=== PATIENT | female | born 1980 | race Hispanic/Latino ===

== ENCOUNTER 2017-08-01 10:32 | Emergency (ER) | payer BC ==
[2017-08-01 10:42] VITALS: BMI 22.8
[2017-08-01 10:45] VITALS: RESP 18
[2017-08-01] MEDS ORDERED: Lidocaine 1% w Epi 1:100,000 Inj INJ STA (11:44)
[2017-08-01] MEDS ORDERED: Oxycodone/Acetaminophen 5/325 mg Tab PO STA (12:32)
[2017-08-01] MEDS ORDERED: Tmp-Smz 800 mg-160 mg DS Tab PO STA (12:32)
--- NOTE | 2017-08-01 12:35 | C.PDOC ---
History Of Present Illness 36-year-old female, presents to the emergency department with complaints of painful lump on right wrist that started six days ago. States it started as small pimple which got bigger after she popped it. Patient went to an urgent care and was started on Augmentin, advised to complete course. States she returned for follow up and sx did not improve, resulting in her being sent to ED for further evaluation. Of note, patient is currently breast feeding Time Seen by Provider: 08/01/17 11:14 Chief Complaint (Nursing): Abnormal Skin Integrity History Per: Patient History/Exam Limitations: no limitations Onset/Duration Of Symptoms: Days Current Symptoms Are (Timing): Still Present Past Medical History Reviewed: Historical Data, Nursing Documentation, Vital Signs Vital Signs: Last Vital Signs Temp 97.7 F 08/01/17 13:00 Pulse 56 L 08/01/17 13:00 Resp 18 08/01/17 13:00 BP 116/84 08/01/17 13:00 Pulse Ox 98 08/01/17 16:33 Family History: States: No Known Family Hx - Social History Hx Alcohol Use: No Hx Substance Use: No - Immunization History Hx Tetanus Toxoid Vaccination: Yes Hx Influenza Vaccination: No Hx Pneumococcal Vaccination: No Review Of Systems Constitutional: Negative for: Fever, Chills Respiratory: Negative for: Shortness of Breath Gastrointestinal: Negative for: Nausea, Vomiting Musculoskeletal: Positive for: Hand Pain. Negative for: Neck Pain Skin: Negative for: Rash Neurological: Negative for: Weakness Physical Exam - Physical Exam Appears: Non-toxic, No Acute Distress Skin: Warm, Dry Nose: Normal Oral Mucosa: Moist Lips: Normal Appearing Neck: Normal ROM Extremity: Normal ROM, No Deformity, Other (radial aspect right wrist: skin abscess 2.5 cm. with black center and fluctuance. No cellulitis or streaking.) Pulses: Left Radial: Normal, Right Radial: Normal Neurological/Psych: Oriented x3, Normal Speech ED Course And Treatment O2 Sat by Pulse Oximetry: 98 Medical Decision Making Medical Decision Making: Performed by the emergency provider Indication:Abscess Location: radial aspect right wrist: Preparation:The area was prepped and draped in the usual sterile fashion and was cleansed w/ Saline. Local infiltration of Lidocaine 2% was used for anesthesia. Procedure:The most fluctuant portion of the abscess was incised with a #11 scalpel. Approximately 3cc of purulent material was obtained. Area was packed with 1/4 inch sterile packing. A dressing was applied by me. Post-Procedure: On exam: feels better, no active bleeding, no neuro-vascular deficit. The patient tolerated the procedure well, and there were no complications. Culture obtained: YES Reassess: Patient treated with Percocet for pain, given one dose of Bactrim and Keflex in ED and will be discharged with Rx to complete course of antibiotics. Patient instructed to follow up with PMD or ED for wound evaluation in three days, asked to return immediately for any new or worsening symptoms, such as fevers, chills, vomiting. Patient agreeable with plan. All questions answered. Disposition - Disposition Referrals: Aquilino Martel MD [Staff Provider] - Disposition: HOME/ ROUTINE Disposition Time: 12:34 Condition: IMPROVED Additional Instructions: Follow up with general surgery within 1-2 days. Return to ED if feel worse. Return to ED in 2 days for wound check and dressing change. Prescriptions: Sulfamethoxazole/Trimethoprim [Bactrim DS 800 mg-160 mg] 1 tab PO BID #14 tab Cephalexin [cephalexin] 500 mg PO Q6 #28 cap oxyCODONE/Acetaminophen [Percocet 5/325 mg Tab] 1 tab PO QID PRN #20 tab PRN Reason: Pain Instructions: Abscess Incision and Drainage (DC) Forms: [employer] (Yi) - Clinical Impression Clinical Impression: Abscess of wrist - Scribe Statement The provider has reviewed the documentation as recorded by the Scribe (Drea Daley) All medical record entries made by the Scribe were at my direction and personally dictated by me. I have reviewed the chart and agree that the record accurately reflects my personal performance of the history, physical exam, medical decision making, and the department course for this patient. I have also personally directed, reviewed, and agree with the discharge instructions and disposition.
[2017-08-01] MEDS ORDERED: Tmp-Smz 800 mg-160 mg DS Tab ONE (12:50)
[2017-08-01] MEDS ORDERED: Oxycodone/Acetaminophen 5/325 mg Tab ONE (12:51)
[2017-08-01 13:06] VITALS: BP 116/84; PULSE 56; TEMP 97.7
[2017-08-01 15:37] VITALS: O2SAT 98
== END 2017-08-01 13:45 | disposition home or self-care (01) ==
LOC: C.ER 10:32
DX: L02.413 Cutaneous abscess of right upper limb (principal)

== ENCOUNTER 2017-08-03 09:32 | Emergency (ER) | payer BC ==
[2017-08-03 09:34] VITALS: BMI 22.8
[2017-08-03 09:40] VITALS: BP 105/54; PULSE 61; RESP 18; TEMP 97.6; O2SAT 97
--- NOTE | 2017-08-03 10:55 | C.PDOC ---
History Of Present Illness 36 yr old female presents to the ER for wound check s/p I&D to the right wrist 2 days ago. Patient was instructed to return today for a wound check. Patient states she is taking antibiotics at home. Denies fever, chills, weakness or numbness in the hand. Time Seen by Provider: 08/03/17 10:41 Chief Complaint (Nursing): Wound Check History Per: Patient History/Exam Limitations: no limitations Onset/Duration Of Symptoms: Days Ago (2 days ago) Past Medical History Reviewed: Historical Data, Nursing Documentation, Vital Signs Vital Signs: Last Vital Signs Temp 97.6 F 08/03/17 09:37 Pulse 61 08/03/17 09:37 Resp 18 08/03/17 09:37 BP 105/54 L 08/03/17 09:37 Pulse Ox 97 08/03/17 10:55 Family History: States: No Known Family Hx - Social History Hx Alcohol Use: No Hx Substance Use: No - Immunization History Hx Tetanus Toxoid Vaccination: Yes Hx Influenza Vaccination: No Hx Pneumococcal Vaccination: No Review Of Systems Except As Marked, All Systems Reviewed And Found Negative. Constitutional: Negative for: Fever, Chills Skin: Positive for: Other (wound check to the right wrist s/p I&D) Neurological: Negative for: Weakness, Numbness Physical Exam - Physical Exam Appears: Non-toxic, No Acute Distress Skin: Warm, Dry Oral Mucosa: Moist Respiratory: Normal Breath Sounds, No Rales, No Rhonchi, No Stridor, No Wheezing Extremity: Normal ROM, Capillary Refill (<2 secs), No Swelling, Other (+ right wrist, packing in place to the distal dorsal right wrist abscess, slight surrounding erythema) Neurological/Psych: Oriented x3, Normal Speech, Normal Motor ED Course And Treatment O2 Sat by Pulse Oximetry: 97 (RA) Pulse Ox Interpretation: Normal Medical Decision Making Medical Decision Making: IMPRESSION: Wound check NOTE: * Patient states she would like to leave the packing in place for 2 more days and have it changed at that time * Patient is advised to follow up in 2 days for packing change and wound check up Disposition Counseled Patient/Family Regarding: Diagnosis, Need For Followup - Disposition Disposition: HOME/ ROUTINE Disposition Time: 10:54 Condition: STABLE Additional Instructions: follow up in 2 days for wound check you have elected to wait until next visit for packing change take medications as prescribed return to ER if symptoms worsens or progress Instructions: Wound Care (DC) Forms: [facility] (Thai), General Discharge Instructions - Clinical Impression Clinical Impression: Change of dressing, Wound check, abscess - Scribe Statement The provider has reviewed the documentation as recorded by the Ruthieibshanna Sultana Provider Attestation: All medical record entries made by the John were at my direction and personally dictated by me. I have reviewed the chart and agree that the record accurately reflects my personal performance of the history, physical exam, medical decision making, and the department course for this patient. I have also personally directed, reviewed, and agree with the discharge instructions and disposition.
== END 2017-08-03 10:58 | disposition home or self-care (01) ==
LOC: C.ER 09:32
DX: Z48.01 Encounter for change or removal of surgical wound dressing (principal)